=== PATIENT | male | born 1980 | race African-American/Black ===

== ENCOUNTER 2019-12-04 20:37 | Inpatient (IN) | payer OTHER ==
[~2019-12-04 20:37] MED LIST: Iopamidol-370 76% 500 ML 1 ML ONE
[2019-12-04 21:09] LABS: Hemoglobin 14.9 g/dL (14.0-18.0); Mean Corpuscular HGB CONC 32.6 g/dL (32.0-36.0); Mean Corpuscular Hemoglobin 31.1 pg (27.0-31.0); Mean Corpuscular Volume 95.5 fL (78.0-98.0); Mean Platelet Volume 8.6 fL (7.4-10.4); Platelet Count 191 thou/uL (130-400); RBC Distribution Width 12.9 % (11.5-14.5); Red Blood Cell (RBC) Count 4.78 mill/uL (4.70-6.10); White Blood Cell (WBC) Count 7.7 thou/uL (4.8-10.8)
--- NOTE | 2019-12-04 21:19 | RAD ---
CHEST ONE VIEW: 12/04/19 HISTORY: Dyspnea. Shortness of breath. FINDINGS: Cardiomegaly. Pulmonary vessels and hilum are normal. Costophrenic angles are clear. No consolidation or mass. Partial obscuration of the right hemidiaphragm likely due to parenchymal changes. No pneumo thorax or acute osseous abnormalities. IMPRESSION: 1. Cardiomegaly. 2. Right lower lobe parenchymal changes. POS: PPP
[2019-12-04 21:27] LABS: Lymphocytes 51 % (21-51); MDiff Complete? YES; Monocytes 12 % (0-10); Neutrophil 36 % (42-75); Reactive Lymphocytes 1 % (0-10)
[2019-12-04 21:42] LABS: ALT (SGPT) 335 U/L (8-55); AST (SGOT) 311 U/L (5-34); Albumin 3.5 g/dL (3.5-5.0); Alkaline Phosphatase 77 U/L (40-110); Anion Gap 17 mmol/L (10-20); BUN (Urea Nitrogen) 16 mg/dL (8.9-20.6); Bilirubin, Total 1.1 mg/dL (0.2-1.2); Calc. Creatinine Clearance 0 mL/min (70-130); Calcium 8.7 mg/dL (7.8-10.44); Carbon Dioxide 24 mmol/L (22-29); Chloride 103 mmol/L (98-107); Estimated GFR-MDRD 67; Globulin 3.5 g/dL (2.4-3.5); Glucose 93 mg/dL (70-105); Potassium 4.5 mmol/L (3.5-5.1); Sodium 139 mmol/L (136-145)
[2019-12-04 21:46] LABS: CK (CPK) 155 U/L (30-200)
[2019-12-04 21:47] LABS: Lipase 13 U/L (8-78)
[2019-12-04 22:04] LABS: CKMB 3.4 ng/mL (0-6.6)
[2019-12-04] MEDS ORDERED: Fentanyl 100 MCG/2 ML VIAL ONE (22:05)
[2019-12-04] MEDS ORDERED: Aspirin 325 MG TAB ONE (22:05)
[2019-12-04] MEDS ORDERED: Enoxaparin Sodium 100 MG/ML SYRINGE ONE (22:05)
[2019-12-04] MEDS ORDERED: Furosemide 40 MG/4 ML VIAL ONE (22:29)
--- NOTE | 2019-12-04 22:36 | CT ---
CT PULMONARY ANGIOGRAM WITH IV CONTRAST AND 3-D POSTPROCESSING: HISTORY:Shortness of breath FINDINGS: There is good contrast opacification of the pulmonary arterial vasculature without filling defects to suggest pulmonary embolism. The thoracic aorta is not opacified and is without aneurysm . There is mediastinal lymphadenopathy. No pericardial effusion is seen. There are small bilateral pleural effusions, right slightly larger t whitten the left with adjacent atelectatic changes. No pneumothoraces, lobar consolidation or lung nodules are noted. There are mild degenerative changes in the spine. There is bilateral gynecomastia. IMPRESSION: No CT evidence of pulmonary embolism.
[2019-12-04] MEDS ORDERED: Nitroglycerin 0.4 MG TAB (25 Tab Bottle) SL PRN (23:08)
--- NOTE | 2019-12-04 23:49 | PDOC.HHP ---
Hospitalist HPI - History of Present Illness Chest pain and shortness of breath History of Present Illness: 39-year-old -[place] man with a history of chronic systolic heart failure, history of coronary artery disease was transferred from correctional facility to the emergency department due to chest pain of onset 3 days ago. Patient describes intermittent chest pain, maximum intensity 6/10, worse with breathing, no known relieving factors, no associated diaphoresis or palpitation. Patient endorsed shortness of breath and orthopnea. Patient stated he is not taking his medications since incarcerated 3 days ago. He endorses nonproductive cough. His initial troponin in the ED is elevated to 3.1. EKG demonstrated diffuse complexes. His d-dimer elevated as well as BNP. CTA thorax done was negative for pulmonary embolism. It demonstrated small bilateral pleural effusions. Patient with significant CAD risk factors. He is admitted for further management of NSTEMI and CHF exacerbation. ED Course: Patient was given full dose Lovenox aspirin and IV Lasix in the ED. Hospitalist ROS - Review of Systems Other: Except as documented, all other systems reviewed and negative Hospitalist History - Past Medical History Cardiac: reports: CAD, CHF (Systolic) - Family History Family History: reports: cardiac disorder (runs in the family) - Social History Smoking Status: Former smoker Alcohol: reports: None Living Situation: Other (Incarcerated) - Exam General Appearance: NAD, awake alert Eye: PERRL, anicteric sclera ENT: normocephalic atraumatic, no oropharyngeal lesions, moist mucosa Neck: supple, no JVD, no carotid bruit Heart: RRR, no murmur, no gallops, normal peripheral pulses Respiratory: CTAB, no wheezes, no rales Gastrointestinal: soft, non-tender, non-distended, normal bowel sounds Extremities: no cyanosis, no clubbing, no edema Skin: normal turgor, no lesions Neurological: cranial nerve grossly intact Musculoskeletal: normal strength Psychiatric: normal affect, normal behavior, A&O x 3 Hospitalist Results - Labs Result Diagrams: 12/05/19 02:58 12/05/19 02:58 Lab results: WBC 7.7 thou/uL (4.8-10.8) 12/04/19 20:58 Hgb 14.9 g/dL (14.0-18.0) 12/04/19 20:58 Hct 45.6 % (42.0-52.0) 12/04/19 20:58 MCV 95.5 fL (78.0-98.0) 12/04/19 20:58 Plt Count 191 thou/uL (130-400) 12/04/19 20:58 Sodium 139 mmol/L (136-145) 12/04/19 20:58 Potassium 4.5 mmol/L (3.5-5.1) 12/04/19 20:58 Chloride 103 mmol/L (98-107) 12/04/19 20:58 Carbon Dioxide 24 mmol/L (22-29) 12/04/19 20:58 BUN 16 mg/dL (8.9-20.6) 12/04/19 20:58 Creatinine 1.41 mg/dL (0.7-1.3) H 12/04/19 20:58 Glucose 93 mg/dL (70-105) 12/04/19 20:58 Calcium 8.7 mg/dL (7.8-10.44) 12/04/19 20:58 Total Bilirubin 1.1 mg/dL (0.2-1.2) 12/04/19 20:58 AST 311 U/L (5-34) H 12/04/19 20:58 ALT 335 U/L (8-55) H 12/04/19 20:58 Alkaline Phosphatase 77 U/L (40-110) 12/04/19 20:58 Creatine Kinase 155 U/L (30-200) 12/04/19 20:58 CK-MB (CK-2) 3.4 ng/mL (0-6.6) 12/04/19 20:58 Troponin I 3.191 ng/mL (< 0.028) H* 12/04/19 20:58 B-Natriuretic Peptide 2553.8 pg/mL (0-100) H 12/04/19 20:58 Serum Total Protein 7.0 g/dL (6.0-8.3) 12/04/19 20:58 Albumin 3.5 g/dL (3.5-5.0) 12/04/19 20:58 Lipase 13 U/L (8-78) 12/04/19 20:58 - Radiology Interpretation CT scan - chest Status: report reviewed by me (Bilateral pleural effusions. No evidence of PE.) Hospitalist [employer]&P A/P - Problem (1) NSTEMI (non-ST elevated myocardial infarction) Code(s): I21.4 - NON-ST ELEVATION (NSTEMI) MYOCARDIAL INFARCTION Status: Acute (2) Chest pain Code(s): R07.9 - CHEST PAIN, UNSPECIFIED Status: Acute (3) Acute on chronic systolic heart failure Code(s): I50.23 - ACUTE ON CHRONIC SYSTOLIC (CONGESTIVE) HEART FAILURE Status: Acute - Plan Plan: Admit to the medical floor. Start full dose Lovenox. We will continue his aspirin and Plavix. We will also continue his home dose Coreg. IV Lasix 40 mg twice daily. Monitor intake and output and daily weight. Trend troponin. Check lipid profile. Check TSH. Obtain echocardiogram Cardiology consult.
[2019-12-05 00:37] LABS: Critical Call Chem Troponin I RESULT DECREASING; Troponin I 3.063 ng/mL (< 0.028)
[2019-12-05 03:37] LABS: Critical Call Chem Troponin I RESULT DECREASING; Troponin I 3.049 ng/mL (< 0.028)
[2019-12-05 03:40] LABS: Anion Gap 17 mmol/L (10-20); BUN (Urea Nitrogen) 16 mg/dL (8.9-20.6); Calc. Creatinine Clearance 114 mL/min (70-130); Calcium 8.2 mg/dL (7.8-10.44); Carbon Dioxide 21 mmol/L (22-29); Chloride 103 mmol/L (98-107); Estimated GFR-MDRD 84; Glucose 78 mg/dL (70-105); Magnesium 1.7 mg/dL (1.6-2.6); Potassium 3.9 mmol/L (3.5-5.1); Sodium 137 mmol/L (136-145)
[2019-12-05 04:10] LABS: Hemoglobin 14.9 g/dL (14.0-18.0); Lymphocytes 57 % (21-51); MDiff Complete? YES; Mean Corpuscular HGB CONC 33.3 g/dL (32.0-36.0); Mean Corpuscular Hemoglobin 31.6 pg (27.0-31.0); Mean Corpuscular Volume 94.7 fL (78.0-98.0); Mean Platelet Volume 8.7 fL (7.4-10.4); Monocytes 8 % (0-10); Neutrophil 33 % (42-75); Platelet Count 175 thou/uL (130-400); RBC Distribution Width 12.9 % (11.5-14.5); Reactive Lymphocytes 2 % (0-10); Red Blood Cell (RBC) Count 4.73 mill/uL (4.70-6.10); White Blood Cell (WBC) Count 8.1 thou/uL (4.8-10.8)
[2019-12-05] MEDS: Furosemide 40 MG/4 ML VIAL SLOW IVP SCH ×2 (07:33→14:10)
[2019-12-05] MEDS: Carvedilol 6.25 MG TAB PO SCH ×2 (08:52→16:47)
[2019-12-05] MEDS: Aspirin 81 mg Enteric Coated Tablet PO SCH (08:52)
[2019-12-05] MEDS: Spironolactone 25 MG TAB PO SCH (08:52)
[2019-12-05] MEDS: Clopidogrel Bisulfate 75 MG TAB PO SCH (08:52)
[2019-12-05] MEDS: Enoxaparin Sodium 100 MG/ML SYRINGE SC SCH ×2 (08:52→21:10)
--- NOTE | 2019-12-05 11:47 | CON ---
DATE OF CONSULTATION: 12/05/2019 INDICATION FOR CONSULTATION: A 39-year-old patient with a history of known nonischemic cardiomyopathy, who had not been taking his medicines for several days and developed worsening of congestive heart failure. He also most likely has diastolic heart failure as well as systolic heart failure. We were asked to see him after he was admitted to the hospital for congestive heart failure, also had indeterminate cardiac enzymes or possible enzymes for a [id number] elevation or most likely type-2 myocardial infarction. HISTORY OF PRESENT ILLNESS: This very unfortunate 39-year-old gentleman has a history of nonischemic cardiomyopathy. He has been on the transplant list at [facility] since [address] Das there for Cardiology. He normally lives in [place]. 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 He apparently was visiting here, was driving through here, and for whatever reason, had some interaction and was then incarcerated. He has been incarcerated for the last several days and was off his medications. Without getting his medications, he became more and more short of breath. He denied any chest pain. He then was brought to the emergency room here. Since being here, he has been given diuresis. He has improved. He said at least he can breathe now, and again continues to have no chest pain, but during the evaluation, his cardiac enzymes were found to be slightly elevated. Troponin-I was 3.19, continues to decrease down was now 3.049 at the 3rd set, and at this time, he is feeling much better. He is actually lying down flat and without any significant shortness of breath at this time and appears that he just had a CHF exacerbation due to not being able to take his medications. PAST MEDICAL HISTORY: Significant for history of apparently from the records schizophrenia, hypertension, and dilated cardiomyopathy, which is nonischemic. He has had a cardiac catheterization in the past and apparently had an atherectomy or thrombectomy performed. He said he had no coronary artery disease found and this was performed a little over a year ago apparently in [place]. He has had also previous cardiac catheterization I believe done in [place] for evaluation for his possible transplant. During the emergency room, he was given I believe Lovenox and he was given aspirin and Lovenox as well as nitroglycerin and Lasix in the emergency room. At this time, he is feeling much better. Again, past medical history is significant for no history of coronary artery disease, history of thrombus in the coronaries due to most likely left ventricular thrombus. He has history of heart failure, schizophrenia, hypertension. He has had history of illicit drug use also. MEDICATIONS: Prior to admission include Xarelto 20 mg a day, furosemide 40 mg b.i.d. He takes Aldactone 25 mg a day, Coreg 6.25 mg b.i.d., Plavix 75 mg a day, and aspirin 81 mg a day. ALLERGIES: I DID NOT BELIEVE THERE ARE ANY ALLERGIES. SOCIAL HISTORY: He smoked half a pack a day for last 10 years. He has a history of methamphetamine use and some cocaine use many years ago. He denies any alcohol use. He lives in [place]. He works as a cutting machine tender decorative. REVIEW OF SYSTEMS: A 12-point review of systems is unremarkable except what is noted in the history of present illness, mainly he just complains of shortness of breath. He denied any HEENT complaints. No pulmonary complaints. No GI. No nausea, vomiting, or diarrhea. No or prostate problems. He denied any musculoskeletal problems except for some edema. PHYSICAL EXAMINATION: GENERAL: Reveals well-developed, well-nourished gentleman, who is in no acute distress at this time. VITAL SIGNS: Blood pressure is 132/81, heart rate is 90 and regular, respiratory rate is 20. He is afebrile. HEENT: Shows head to be normocephalic and atraumatic. Carotid pulses are present. There were no bruits. CHEST: Clear to auscultation. Somewhat decreased in the bases, but no significant rales, rhonchi, or wheezing was noted. CARDIOVASCULAR: Regular rate and rhythm at this time. There were no gross murmurs noted. ABDOMEN: Soft, flat, nontender. Positive bowel sounds are present. EXTREMITIES: No clubbing or cyanosis. He has minimal ankle edema. Pedal pulses are somewhat decreased. This may be due to decreased cardiac output. SKIN: Warm and dry. LABORATORY DATA: Shows a sodium of 137, potassium 3.9, BUN was 16, creatinine 1.17, glucose was 78. Hemoglobin 14.9, WBC of 8.1, hematocrit 44.8, platelet count was 175,000. BNP was 2553. Troponin-I was 3.19 decreased down to 3.06 and again decreased to 3.049. Chest x-ray shows cardiomegaly. There is some right lower lobe atelectasis. CT scan of the chest showed bilateral small pleural effusions, but no other acute findings. EKG shows normal sinus rhythm with no acute changes. He does have some nonspecific ST-segment changes in the lateral leads. IMPRESSION: 1. Congestive heart failure exacerbation in 39-year-old patient with a history of known dilated nonischemic cardiomyopathy. He will need to be resumed on his medications. Most likely, this event occurred due to the patient not being able to have his medications for the last 3 to 4 days. He will be referred back to [facility] with Dr. Das for further evaluation for possible transplant. I did explain to him that should he continue to use illicit drugs, he would not be a candidate to undergo a cardiac transplant in the future. 2. History of thrombus to coronary arteries apparently, but no evidence of stenosis according to the patient, this was on the cardiac catheterization less than 2 years ago. He does have nonischemic cardiomyopathy. 3. History of illicit drug use. I strongly encouraged the patient to stop using illicit drugs. We will obtain an echocardiogram for further evaluation of the left ventricular systolic function and also to rule out thrombus. Mainly now, we just need to get his congestive heart failure symptoms under control. Further care of the patient will depend on the results of the echocardiogram. Job ID: [id number]
--- NOTE | 2019-12-05 12:32 | PDOC.HOSPP ---
- Subjective Encounter Date: 12/05/19 Encounter Time: 10:30 Subjective: sob is better, no chest pain or palp says he lives in [facility] area in [place], has been in [place] long-term x 4 days is confident he will have his [place] by tomorrow to [facility] - Objective Vital Signs & Weight: Vital Signs (12 hours) Temp Pulse Resp BP Pulse Ox 12/05/19 08:00 97.6 F 91 17 115/77 99 12/05/19 05:19 97.9 F 90 20 132/81 100 12/05/19 00:43 98.3 F 88 18 120/79 98 Weight Weight 210 lb 9.6 oz I&O: 12/04/19 12/05/19 12/06/19 06:59 06:59 06:59 Output Total 800 Balance -800 Result Diagrams: 12/05/19 02:58 12/05/19 02:58 Hospitalist ROS - Medication Medications: Active Medications Generic Name Dose Route Start Last Admin Trade Name Freq PRN Reason Stop Dose Admin Aspirin 81 mg 12/05/19 09:00 12/05/19 08:52 Aspirin 81 Mg Enteric Coated Tablet PO 81 mg DAILY SABAS Administration Carvedilol 6.25 mg 12/05/19 08:00 12/05/19 08:52 Carvedilol 6.25 Mg Tab PO 6.25 mg BID- SABAS Administration Clopidogrel Bisulfate 75 mg 12/05/19 09:00 12/05/19 08:52 Clopidogrel Bisulfate 75 Mg Tab PO 75 mg DAILY SABAS Administration Enoxaparin Sodium 100 mg 12/05/19 09:00 12/05/19 08:52 Enoxaparin Sodium 100 Mg/Ml Syringe SC 100 mg 0900,2100 SABAS Administration Furosemide 40 mg 12/05/19 06:00 12/05/19 07:33 Furosemide 40 Mg/4 Ml Vial SLOW IVP 40 mg 0600,1400 SABAS Administration Sodium Chloride 10 ml 12/05/19 09:00 12/05/19 08:52 Flush - Normal Saline 10 Ml Syringe IVF 10 ml Q12HR SABAS Administration Spironolactone 25 mg 12/05/19 09:00 12/05/19 08:52 Spironolactone 25 Mg Tab PO 25 mg DAILY SABAS Administration - Exam General Appearance: awake alert Eye: PERRL, anicteric sclera ENT: no oropharyngeal lesions, moist mucosa Neck: supple, no JVD Heart: RRR, no murmur Respiratory: no wheezes, rales Gastrointestinal: soft, non-tender, non-distended, normal bowel sounds Extremities: no cyanosis, no edema Neurological: cranial nerve grossly intact, no focal deficits Psychiatric: normal affect, A&O x 3 Hosp A/P (1) Acute on chronic systolic heart failure Code(s): I50.23 - ACUTE ON CHRONIC SYSTOLIC (CONGESTIVE) HEART FAILURE Status: Acute (2) NSTEMI (non-ST elevated myocardial infarction) Code(s): I21.4 - NON-ST ELEVATION (NSTEMI) MYOCARDIAL INFARCTION Status: Acute (3) Non-ischemic cardiomyopathy Code(s): I42.8 - OTHER CARDIOMYOPATHIES Status: Chronic (4) Substance abuse Code(s): F19.10 - OTHER PSYCHOACTIVE SUBSTANCE ABUSE, UNCOMPLICATED Status: Chronic (5) Tobacco abuse Code(s): Z72.0 - TOBACCO USE Status: Chronic - Plan await echo has had 2 prior cath done in [place], on one of them he had thrombectomy done he knows his heart is weak but doesn't recall ef continue lasix, asp, coreg, full dose lovenox, aldactone switch to xarelto in am if there is no LV thrombus on echo, d/w has type 2 nstemi demand ischemia due to chf exacerbation to ambulate as tolerated hemostable has already put out total of 5 urinal cans of urine from admission
[2019-12-05 13:17] LABS: SARS-CoV-2 MS2 Positive; SARS-CoV-2 N Gene Negative; SARS-CoV-2 S Gene Negative; SARS-CoV-2 by NAA Not Detected (NotDetected); SARS-CoV-2 orf1ab Negative
[2019-12-05 13:55] VITALS: BMI 30.2
[2019-12-06 05:27] LABS: Anion Gap 12 mmol/L (10-20); BUN (Urea Nitrogen) 17 mg/dL (8.9-20.6); Calc. Creatinine Clearance 111 mL/min (70-130); Calcium 7.6 mg/dL (7.8-10.44); Carbon Dioxide 27 mmol/L (22-29); Chloride 102 mmol/L (98-107); Estimated GFR-MDRD 82; Glucose 96 mg/dL (70-105); Potassium 3.3 mmol/L (3.5-5.1); Sodium 138 mmol/L (136-145)
[2019-12-06] MEDS: Furosemide 40 MG/4 ML VIAL SLOW IVP SCH ×2 (05:30→16:21)
[2019-12-06] MEDS: Clopidogrel Bisulfate 75 MG TAB PO SCH (11:07)
[2019-12-06] MEDS: Carvedilol 6.25 MG TAB PO SCH ×2 (11:07→18:38)
[2019-12-06] MEDS: Spironolactone 25 MG TAB PO SCH (11:07)
[2019-12-06] MEDS: Aspirin 81 mg Enteric Coated Tablet PO SCH (11:07)
[2019-12-06] MEDS: Enoxaparin Sodium 100 MG/ML SYRINGE SC SCH (11:08)
--- NOTE | 2019-12-06 16:13 | PDOC.HOSPP ---
- Subjective Encounter Date: 12/06/19 Encounter Time: 10:00 Subjective: Patient seen for follow-up regarding congestive heart failure exacerbation. Reports feeling better today. - Objective Vital Signs & Weight: Vital Signs (12 hours) Temp Pulse Resp BP Pulse Ox 12/06/19 11:00 97 12/06/19 07:25 98.6 F 62 16 111/79 97 12/06/19 05:00 99/64 Weight Admit Weight 210 lb 9.6 oz Weight 199 lb I&O: 12/05/19 12/06/19 12/07/19 06:59 06:59 06:59 Intake Total 1920 Output Total 4000 Balance -2079 Result Diagrams: 12/05/19 02:58 12/06/19 04:09 Additional Labs: I reviewed patient's labs and MAR EKG Reviewed by me: Yes (Telemetry: Normal sinus rhythm) Hospitalist ROS - Review of Systems Respiratory: reports: SOB with excertion. denies: cough, shortness of breath, hemoptysis, pleuritic pain, sputum Cardiovascular: reports: orthopnea, edema. denies: chest pain, palpitations, paroxysmal noc. dyspnea, light headedness - Medication Medications: Active Medications Generic Name Dose Route Start Last Admin Trade Name Freq PRN Reason Stop Dose Admin Aspirin 81 mg 12/05/19 09:00 12/06/19 11:07 Aspirin 81 Mg Enteric Coated Tablet PO 81 mg DAILY SABAS Administration Carvedilol 6.25 mg 12/05/19 08:00 12/06/19 11:07 Carvedilol 6.25 Mg Tab PO 6.25 mg BID- SABAS Administration Clopidogrel Bisulfate 75 mg 12/05/19 09:00 12/06/19 11:07 Clopidogrel Bisulfate 75 Mg Tab PO 75 mg DAILY SABAS Administration Enoxaparin Sodium 100 mg 12/05/19 09:00 12/06/19 11:08 Enoxaparin Sodium 100 Mg/Ml Syringe SC 100 mg 0900,2100 SABAS Administration Furosemide 40 mg 12/05/19 06:00 12/06/19 05:30 Furosemide 40 Mg/4 Ml Vial SLOW IVP Not Given 0600,1400 SABAS Sodium Chloride 10 ml 12/05/19 09:00 12/06/19 11:09 Flush - Normal Saline 10 Ml Syringe IVF 10 ml Q12HR SABAS Administration Spironolactone 25 mg 12/05/19 09:00 12/06/19 11:07 Spironolactone 25 Mg Tab PO 25 mg DAILY SABAS Administration - Exam General Appearance: awake alert Eye: anicteric sclera ENT: moist mucosa Neck: supple Heart: RRR Respiratory - other findings: Bibasilar crackles Gastrointestinal: soft, non-tender Extremities: no cyanosis Musculoskeletal: no muscle wasting Psychiatric: normal affect, normal behavior Hosp A/P - Plan -Assessment (1) Acute on chronic systolic heart failure NYHA class III ACUTE ON CHRONIC SYSTOLIC (CONGESTIVE) HEART FAILURE Status: Acute (2) NSTEMI (non-ST elevated myocardial infarction) type II NON-ST ELEVATION (NSTEMI) MYOCARDIAL INFARCTION Status: Acute (3) Substance abuse Code(s): F19.10 - OTHER PSYCHOACTIVE SUBSTANCE ABUSE, UNCOMPLICATED Status: Chronic (4) Tobacco abuse Code(s): Z72.0 - TOBACCO USE Status: Chronic (5) Non-ischemic cardiomyopathy Code(s): I42.8 - OTHER CARDIOMYOPATHIES Status: Chronic - Plan Echo report noted. continue lasix, asp, coreg, full dose lovenox, aldactone has type 2 nstemi demand ischemia due to chf exacerbation Ambulate patient
[2019-12-06] MEDS: Rivaroxaban 2.5 MG TAB PO SCH (20:34)
--- NOTE | 2019-12-07 02:17 | PDOC.EVN ---
Event Note - Event Note Event Note: Nursing called, reports Non sustained Vtach, asymptomatic, VSS. Will check electrolytes, add electrolyte replacement protocol.
[2019-12-07] MEDS ORDERED: Electrolyte Replacement Protocol FS PRN (02:30)
[2019-12-07 03:00] LABS: Anion Gap 14 mmol/L (10-20); BUN (Urea Nitrogen) 15 mg/dL (8.9-20.6); Calc. Creatinine Clearance 106 mL/min (70-130); Calcium 8.2 mg/dL (7.8-10.44); Carbon Dioxide 25 mmol/L (22-29); Chloride 101 mmol/L (98-107); Estimated GFR-MDRD 83; Glucose 113 mg/dL (70-105); Potassium 3.7 mmol/L (3.5-5.1); Sodium 136 mmol/L (136-145)
[2019-12-07] MEDS ORDERED: Magnesium 2 GM/50 ML 2 GM in Premix Bag 1 BAG IVPB SCH (03:30)
[2019-12-07] MEDS: Furosemide 40 MG/4 ML VIAL SLOW IVP SCH ×2 (05:02→14:25)
[2019-12-07] MEDS: Aspirin 81 mg Enteric Coated Tablet PO SCH (08:52)
[2019-12-07] MEDS: Rivaroxaban 2.5 MG TAB PO SCH ×2 (08:52→20:21)
[2019-12-07] MEDS: Carvedilol 6.25 MG TAB PO SCH ×2 (08:52→17:22)
[2019-12-07] MEDS: Clopidogrel Bisulfate 75 MG TAB PO SCH (08:52)
[2019-12-07] MEDS: Spironolactone 25 MG TAB PO SCH (10:18)
[2019-12-07] MEDS ORDERED: Lisinopril 2.5 MG TAB PO SCH (14:15)
--- NOTE | 2019-12-07 14:19 | PDOC.HOSPP ---
- Subjective Encounter Date: 12/07/19 Encounter Time: 11:00 Subjective: Patient seen for follow-up regarding nonsustained ventricular tachycardia. Denies any chest pain. - Objective Vital Signs & Weight: Vital Signs (12 hours) Temp Pulse Resp BP Pulse Ox 12/07/19 11:34 97.5 F L 78 18 111/74 99 12/07/19 07:40 100 12/07/19 07:39 97.7 F 80 18 116/78 100 12/07/19 03:45 98.3 F 81 18 117/74 96 Weight Admit Weight 210 lb 9.6 oz Weight 202 lb 8 oz I&O: 12/06/19 12/07/19 12/08/19 06:59 06:59 06:59 Intake Total 1920 1922 Output Total 4000 2640 Balance -7958 -515 Result Diagrams: 12/05/19 02:58 12/07/19 02:26 Additional Labs: I reviewed patient's labs and MAR EKG Reviewed by me: Yes (Telemetry: Normal sinus rhythm) Hospitalist ROS - Review of Systems Respiratory: denies: cough, shortness of breath, SOB with excertion, pleuritic pain, wheezing Cardiovascular: denies: chest pain, palpitations, orthopnea, paroxysmal noc. dyspnea, edema, light headedness - Medication Medications: Active Medications Generic Name Dose Route Start Last Admin Trade Name Freq PRN Reason Stop Dose Admin Aspirin 81 mg 12/05/19 09:00 12/07/19 08:52 Aspirin 81 Mg Enteric Coated Tablet PO 81 mg DAILY SABAS Administration Carvedilol 6.25 mg 12/05/19 08:00 12/07/19 08:52 Carvedilol 6.25 Mg Tab PO 6.25 mg BID- SABAS Administration Clopidogrel Bisulfate 75 mg 12/05/19 09:00 12/07/19 08:52 Clopidogrel Bisulfate 75 Mg Tab PO 75 mg DAILY SABAS Administration Furosemide 40 mg 12/05/19 06:00 12/07/19 05:02 Furosemide 40 Mg/4 Ml Vial SLOW IVP 40 mg 0600,1400 SABAS Administration Rivaroxaban 2.5 mg 12/06/19 21:00 12/07/19 08:52 Rivaroxaban 2.5 Mg Tab PO 2.5 mg BID SABAS Administration Sodium Chloride 10 ml 12/05/19 09:00 12/07/19 08:53 Flush - Normal Saline 10 Ml Syringe IVF 10 ml Q12HR SABAS Administration Spironolactone 25 mg 12/05/19 09:00 12/07/19 10:18 Spironolactone 25 Mg Tab PO 25 mg DAILY SABAS Administration - Exam General Appearance: awake alert Eye: anicteric sclera ENT: moist mucosa Neck: supple Heart: RRR Respiratory: CTAB Gastrointestinal: soft, non-tender Extremities: no cyanosis Skin: no rashes Psychiatric: normal affect, normal behavior Hosp A/P - Plan -Assessment (1) unsustained ventricular tachycardia Status: Acute (2) Acute on chronic systolic heart failure NYHA class III ACUTE ON CHRONIC SYSTOLIC (CONGESTIVE) HEART FAILURE Status: Acute (3) NSTEMI (non-ST elevated myocardial infarction) type II NON-ST ELEVATION (NSTEMI) MYOCARDIAL INFARCTION Status: Acute (4) Substance abuse Code(s): F19.10 - OTHER PSYCHOACTIVE SUBSTANCE ABUSE, UNCOMPLICATED Status: Chronic (5) Tobacco abuse Code(s): Z72.0 - TOBACCO USE Status: Chronic (6) Non-ischemic cardiomyopathy Code(s): I42.8 - OTHER CARDIOMYOPATHIES Status: Chronic - Plan Start patient on lisinopril. Magnesium and potassium levels are normal today morning. Continue diuresis. Patient has been started on rivaroxaban.
--- NOTE | 2019-12-07 19:43 | PQF ---
CLINICAL DOCUMENTATION CLARIFICATION FORM: Dear Dr. Sofia Summers 2019. [id number] Please check appropriate box(es): [ ] Acute Respiratory Failure: [ ] with Hypoxia [ ] with Hypercapnia [ ] Acute Respiratory Failure due to: (etiology) [ ] Hypoxia [ ] Other diagnosis [ ] Unable to determine In addition, please specify: Present on Admission (POA): [ ] Yes [ ] No [ ] Unable to determine Clinical indicators/Signs/Symptoms/Labs: 12/03 ED report: resp 23, pulse 103, 91% RA > 99% 2L/NC, Pt reports 3 days of SOB with chest pain, Final ed physician dx: NSTEMI, CHF 12/03 HPI : Pt endorses SOB and orthopnea, states he has not taken his medication for 3 days since his incarceration. A/P: NSTEMI, Chest pain, Acute on Chronic Systolic CHF 12/06 event note: nursing called, reports non-sustained v-tach, asymptomatic (Krist[place]) RIsk: *NSTEMI, * Acute on Chronic Systolic CHF (H&P/[place]) 12/03 Treatments: * supplemental Oxygen (12/03 - present) * Lasix IVP ( 12/04 - present) Thank you! CDS/[employer] Signature: Michelle Bhandari RN Phone #: [phone] Date/Time: 12/07/2019 Acute Respiratory Failure: ABG pH < 7.35 or > 7.45; Decreased oxygen saturation (<90% room air or < 95% on oxygen); PCO2 > 50 mm Hg; PO2 < 60 mm Hg; Labored or rapid respirations ARDS: Dx Criteria [[place] ARDS]: Respiratory symptoms within one week of a known clinical insult (e.g. shock, infection, surgery, trauma) Bilateral opacities in CXR/Chest CT not due to CHF or fluid This is a permanent part of the Medical Record MTDD
[2019-12-08 05:17] LABS: Anion Gap 13 mmol/L (10-20); BUN (Urea Nitrogen) 18 mg/dL (8.9-20.6); Calc. Creatinine Clearance 96 mL/min (70-130); Calcium 8.7 mg/dL (7.8-10.44); Carbon Dioxide 28 mmol/L (22-29); Chloride 101 mmol/L (98-107); Estimated GFR-MDRD 72; Glucose 73 mg/dL (70-105); Potassium 4.4 mmol/L (3.5-5.1); Sodium 138 mmol/L (136-145)
[2019-12-08] MEDS: Furosemide 40 MG/4 ML VIAL SLOW IVP SCH ×2 (05:19→15:53)
[2019-12-08] MEDS: Aspirin 81 mg Enteric Coated Tablet PO SCH (08:54)
[2019-12-08] MEDS: Carvedilol 6.25 MG TAB PO SCH (08:54)
[2019-12-08] MEDS: Rivaroxaban 2.5 MG TAB PO SCH (08:54)
[2019-12-08] MEDS: Spironolactone 25 MG TAB PO SCH (08:54)
--- NOTE | 2019-12-08 11:28 | PDOC.CPN ---
- Subjective Date: 12/08/19 Time: 11:26 Interval history: No overnight complaints. Patient to be discharged today. Frequent PVCs and NSVT on monitor. Apparently Amio was to be started yesterday and not done. - Review of Systems General: denies: fever/chills, weight/appetite/sleep changes, night sweats, fatigue Respiratory: denies: cough, congestion, shortness of breath, exercise intolerance Cardiovascular: denies: chest pain, palpitation, edema, paroxysmal nocturnal dyspnea, orthopnea Gastrointestinal: denies: nausea, vomiting, diarrhea, constipation, abd pain, GI bleeding Musculoskeletal: denies: pain, tenderness, stiffness, swelling, arthritis/art hralgias Neurological: reports: weakness - Objective Allergies/Adverse Reactions: Allergies Allergy/AdvReac Type Severity Reaction Status Date / Time No Known Drug Allergies Allergy Verified 12/06/19 20:30 Visit Medications: Current Medications Amiodarone HCl (Amiodarone 200 Mg Tab) 400 mg PO TID [facility] Amiodarone HCl (Amiodarone 200 Mg Tab) 400 mg PO NOW [facility] Aspirin (Aspirin 81 Mg Enteric Coated Tablet) 81 mg PO DAILY [facility] Last Admin: 12/08/19 08:54 Dose: 81 mg Documented by: Carvedilol (Carvedilol 6.25 Mg Tab) 6.25 mg PO BID-WM [facility] Last Admin: 12/08/19 08:54 Dose: 6.25 mg Documented by: Furosemide (Furosemide 40 Mg/4 Ml Vial) 40 mg SLOW IVP 0600,1400 [facility] Last Admin: 12/08/19 05:19 Dose: 40 mg Documented by: Miscellaneous Medication (Electrolyte Replacement Protocol) 0 each FS ASDIR PRN; Protocol PRN Reason: ELECTROLYTE REPLACEMENT Nitroglycerin (Nitroglycerin 0.4 Mg Tab (25 Tab Bottle)) 0.4 mg SL Q5MIN PRN PRN Reason: Chest Pain Rivaroxaban (Rivaroxaban 2.5 Mg Tab) 2.5 mg PO BID [facility] Last Admin: 12/08/19 08:54 Dose: 2.5 mg Documented by: Sodium Chloride (Flush - Normal Saline 10 Ml Syringe) 10 ml IVF Q12HR [facility] Last Admin: 12/08/19 08:55 Dose: 10 ml Documented by: Spironolactone (Spironolactone 25 Mg Tab) 25 mg PO DAILY [facility] Last Admin: 12/08/19 08:54 Dose: 25 mg Documented by: Vital Signs & Weight: Vital Signs Temp Pulse Resp BP Pulse Ox 12/08/19 07:07 97.5 F L 81 16 114/80 97 12/08/19 07:05 99 12/08/19 03:20 98.5 F 75 16 105/64 95 Admit Weight 210 lb 9.6 oz Weight 202 lb 9.6 oz - Physical Exam General: alert & oriented x3, appears well HEENT: mucus membranes moist Neck: supple neck Cardiac: regular rate and rhythm, other (frequent ectopy) Lungs: clear to auscultation Abdomen: soft, non-tender Extremities: clubbing Skin: clear - Labs Result Diagrams: 12/05/19 02:58 12/08/19 04:10 Troponin/CKMB CK-MB (CK-2) 3.4 ng/mL (0-6.6) 12/04/19 20:58 Troponin I 3.049 ng/mL (< 0.028) H* 12/05/19 02:58 - Assessment/Plan Assessment/Plan: 1.NICMO 2.Illicit Drug Use 3. Chronic systolic CHF 4. NSVT 5.Frequent PVCs Patient euvolemic. Scheduled for LifeVest and discharge today. Will start Amio taper as previously ordered by Dr. Rice.
[2019-12-08] MEDS ORDERED: Amiodarone 200 MG TAB PO SCH ×2 (11:30→15:00)
--- NOTE | 2019-12-08 11:50 | PDOC.HOSPP ---
- Subjective Encounter Date: 12/08/19 Encounter Time: 07:00 Subjective: Patient seen for follow-up regarding heart failure exacerbation. Reports feeling better. - Objective Vital Signs & Weight: Vital Signs (12 hours) Temp Pulse Resp BP Pulse Ox 12/08/19 07:07 97.5 F L 81 16 114/80 97 12/08/19 07:05 99 12/08/19 03:20 98.5 F 75 16 105/64 95 Weight Admit Weight 210 lb 9.6 oz Weight 202 lb 9.6 oz I&O: 12/07/19 12/08/19 12/09/19 06:59 06:59 06:59 Intake Total 1922 960 Output Total 2640 8136 600 Balance -715 -1690 -600 Result Diagrams: 12/05/19 02:58 12/08/19 04:10 Additional Labs: I reviewed patient's labs and MAR EKG Reviewed by me: Yes (Telemetry: Normal sinus rhythm, premature ventricular complexes, NSVT) Hospitalist ROS - Review of Systems Cardiovascular: denies: chest pain, palpitations, orthopnea, paroxysmal noc. dyspnea, edema, light headedness Gastrointestinal: denies: nausea, vomiting, abdominal pain, diarrhea, constipation, melena, hematochezia - Medication Medications: Active Medications Generic Name Dose Route Start Last Admin Trade Name Catrachitoq PRN Reason Stop Dose Admin Aspirin 81 mg 12/05/19 09:00 12/08/19 08:54 Aspirin 81 Mg Enteric Coated Tablet PO 81 mg DAILY [facility] Administration Carvedilol 6.25 mg 12/05/19 08:00 12/08/19 08:54 Carvedilol 6.25 Mg Tab PO 6.25 mg BID-WM [facility] Administration Furosemide 40 mg 12/05/19 06:00 12/08/19 05:19 Furosemide 40 Mg/4 Ml Vial SLOW IVP 40 mg 0600,1400 [facility] Administration Rivaroxaban 2.5 mg 12/06/19 21:00 12/08/19 08:54 Rivaroxaban 2.5 Mg Tab PO 2.5 mg BID [facility] Administration Sodium Chloride 10 ml 12/05/19 09:00 12/08/19 08:55 Flush - Normal Saline 10 Ml Syringe IVF 10 ml Q12HR [facility] Administration Spironolactone 25 mg 12/05/19 09:00 12/08/19 08:54 Spironolactone 25 Mg Tab PO 25 mg DAILY [facility] Administration - Exam General Appearance: awake alert Eye: anicteric sclera ENT: moist mucosa Neck: supple Heart: RRR Respiratory: CTAB Gastrointestinal: soft, non-tender Skin: no rashes Psychiatric: normal affect, normal behavior Hosp A/P - Plan -Assessment (1) Acute on chronic systolic heart failure NYHA class III ACUTE ON CHRONIC SYSTOLIC (CONGESTIVE) HEART FAILURE Status: Acute (2) unsustained ventricular tachycardia Status: Acute (3) NSTEMI (non-ST elevated myocardial infarction) type II NON-ST ELEVATION (NSTEMI) MYOCARDIAL INFARCTION Status: Acute (4) Substance abuse Code(s): F19.10 - OTHER PSYCHOACTIVE SUBSTANCE ABUSE, UNCOMPLICATED Status: Chronic (5) Tobacco abuse Code(s): Z72.0 - TOBACCO USE Status: Chronic (6) Non-ischemic cardiomyopathy Code(s): I42.8 - OTHER CARDIOMYOPATHIES Status: Chronic (7) acute respiratory failure secondary to congestive heart failure exacerbation Status: Acute, present on admission - Plan Patient is currently awaiting LifeVest. Continue amiodarone and lisinopril. Discontinue Plavix. Discharge once LifeVest is fitted.
[2019-12-08 16:05] VITALS: BP 124/82; TEMP 97.8
--- NOTE | 2019-12-08 20:03 | DIS ---
DATE OF ADMISSION: 12/04/2019 DATE OF DISCHARGE: 12/08/2019 PRIMARY CARE PROVIDER: Unknown. DISCHARGE DIAGNOSES: 1. Nonischemic cardiomyopathy. 2. Nonsustained ventricular tachycardia. 3. Acute on chronic systolic congestive heart failure, [place] Heart Association class III. 4. COVID PCR test negative. 5. Hypokalemia. 6. Bet-VK-qzdhgoiza myocardial infarction, type 2. 7. Acute hypoxic respiratory failure secondary to congestive heart failure exacerbation, present on admission. CONDITION OF PATIENT ON THE DAY OF DISCHARGE: Stable. I assessed Mr. Sparks on the day of discharge. Please refer to my daily hospitalist progress note for further details regarding this [id number]-sz-[id number] encounter. CONSULTATIONS DURING THIS HOSPITALIZATION: Cardiology, Dr. Rice. HOSPITAL COURSE: Mr. Sparks is a pleasant 39-year-old gentleman who was admitted to [facility] on December 04, 2019, for systolic congestive heart failure exacerbation and elevated troponin. He was treated with intravenous diuresis. He was seen by Cardiology Service. 2D echocardiogram showed moderately increased left ventricular size, left ventricular ejection fraction of 20% to 25%, global hypokinesis consistent with cardiomyopathy, mildly enlarged right ventricular cavity, mild hypokinesis, moderately dilated left atrium, [id number] enlarged right atrium size, moderate mitral regurgitation, structurally normal aortic valve, mild tricuspid regurgitation, and vxyd-dh-oguyyaic pulmonic regurgitation. He improved with diuretics. He was found to have nonsustained ventricular tachycardia. He was started on amiodarone. He was also started on lisinopril. His beta clarence was continued. He was recommended LifeVest. He is being fitted with LifeVest prior to discharge. If the ejection fraction does not improve, then he will need an AICD. DISCHARGE MEDICATIONS: 1. Amiodarone 400 mg 3 times a day for 1 week, then 200 mg 3 times a day for 1 week, then 200 mg 2 times a day. 2. Lisinopril 2.5 mg daily. 3. Aspirin 81 mg daily. 4. Plavix was discontinued. 5. Rivaroxaban 2.5 mg 2 times a day. 6. Trazodone 50 mg at bedtime. 7. Lasix 40 mg 2 times a day. 8. Coreg 6.25 mg 2 times a day. 9. Spironolactone 25 mg daily. 10. Abilify 10 mg daily. ACTIVITY: As tolerated. DIET: Heart-healthy and low-sodium. POST ACUTE CARE FOLLOWUP: With primary care provider in 3 days and with Cardiology Service in 2 weeks. DISCHARGE DESTINATION: [place] [facility] [employer]. TIME SPENT: Total amount of time spent coordinating this discharge: Thirty-two minutes. Job ID: [id number]
--- NOTE | 2019-12-12 16:55 | EKG ---
Test Reason : Blood Pressure : / mmHG Vent. Rate : 107 BPM Atrial Rate : 107 BPM P-R Int : 164 ms QRS Dur : 078 ms QT Int : 368 ms P-R-T Axes : 066 067 060 degrees QTc Int : 491 ms Sinus tachycardia with Fusion complexes Possible Left atrial enlargement Low voltage QRS Nonspecific T wave abnormality Abnormal ECG Confirmed by DALIA COLON, ROMINA ([id number]), online editor JULIETH ROBLERO ([id number]) on 12/12/2019 4:53:49 PM Referred By: Confirmed By:ROMINA GÓMEZ MD
== END 2019-12-08 18:15 | disposition home or self-care (01) | DRG 280 ==
LOC: EEVIPCON 20:37 → ERS 20:37 → 2NO 23:00
PROVIDERS: ADMIT Internal Medicine; ATTEND Internal Medicine
DX: I11.0 Hypertensive heart disease with heart failure (principal); I21.A1 Myocardial infarction type 2; J96.01 Acute respiratory failure with hypoxia; I47.1 Supraventricular tachycardia; I50.23 Acute on chronic systolic (congestive) heart failure; I42.0 Dilated cardiomyopathy; I25.10 Atherosclerotic heart disease of native coronary artery without angina pectoris; Z20.828 Contact with and (suspected) exposure to other viral communicable diseases; F19.10 Other psychoactive substance abuse, uncomplicated; F20.9 Schizophrenia, unspecified; I25.2 Old myocardial infarction; Z87.891 Personal history of nicotine dependence; E87.6 Hypokalemia
CPT/HCPCS: 36415; 71045; 71275; 80048; 80053; 82550; 82553; 83690; 83735; 83880; 84443; 84484; 85025; 85379; 87635; 93005; 93306; 94760; 96372; 96374; 96375; J1650; J1940; J3010; J3475; Q9967; U0003

== ENCOUNTER 2019-12-10 10:11 | Emergency (ER) | payer OTHER ==
--- NOTE | 2019-12-10 10:39 | RAD ---
Chest one view HISTORY: Chest pain. Dyspnea. COMPARISON: 12/04/2019. FINDINGS: Cardiac silhouette is magnified and enlarged. Pulmonary vasculature are unremarkable. Mediastinum is midline. No lobar consolidation or evidence of pneumothorax. Old healed bilateral upper rib fractures. IMPRESSION : Cardiomegaly. Stable radiographic appearance of the chest.
[2019-12-10 10:45] LABS: #Basophils 0.1 thou/uL (0.0-0.2); #Eosinphils 0.1 thou/uL (0.0-0.7); #Lymphocytes 2.8 thou/uL (1.20-3.40); #Monocytes 0.4 thou/uL (0.11-0.59); #Neutrophils 2.2 thou/uL (1.40-6.50); %Basophils 1.9 % (0.0-1.0); %Eosinophils 1.2 % (0.0-10.0); %Lymphocytes 49.2 % (21.0-51.0); %Monocytes 7.6 % (0.0-10.0); %Neutrophils 40.1 % (42.0-75.0); Hemoglobin 15.4 g/dL (14.0-18.0); Mean Corpuscular HGB CONC 32.1 g/dL (32.0-36.0); Mean Corpuscular Hemoglobin 30.7 pg (27.0-31.0); Mean Corpuscular Volume 95.7 fL (78.0-98.0); Mean Platelet Volume 8.7 fL (7.4-10.4); Platelet Count 264 thou/uL (130-400); RBC Distribution Width 12.8 % (11.5-14.5); Red Blood Cell (RBC) Count 5.01 mill/uL (4.70-6.10); White Blood Cell (WBC) Count 5.6 thou/uL (4.8-10.8)
[2019-12-10 11:18] LABS: ALT (SGPT) 130 U/L (8-55); AST (SGOT) 45 U/L (5-34); Albumin 3.4 g/dL (3.5-5.0); Alkaline Phosphatase 83 U/L (40-110); Anion Gap 15 mmol/L (10-20); BUN (Urea Nitrogen) 22 mg/dL (8.9-20.6); Bilirubin, Total 0.6 mg/dL (0.2-1.2); CK (CPK) 63 U/L (30-200); Calc. Creatinine Clearance 0 mL/min (70-130); Calcium 8.8 mg/dL (7.8-10.44); Carbon Dioxide 27 mmol/L (22-29); Chloride 100 mmol/L (98-107); Estimated GFR-MDRD 56; Globulin 3.4 g/dL (2.4-3.5); Glucose 133 mg/dL (70-105); Lipase 28 U/L (8-78); Potassium 4.5 mmol/L (3.5-5.1); Protein, Total 6.8 g/dL (6.0-8.3); Sodium 137 mmol/L (136-145)
[2019-12-10 11:38] LABS: CKMB 2.1 ng/mL (0-6.6)
--- NOTE | 2019-12-10 13:14 | ULT ---
EXAM: Bilateral lower extremity venous Doppler HISTORY: Left leg pain. FINDINGS: Grayscale, color-flow, Doppler evaluation, spectral analysis of the bilateral lower extremity venous structures is performed with 2-D imaging. The bilateral common femoral, superficial femoral, popliteal, posterior tibial, proximal greater saphenous and profunda femoral veins are imaged. There is normal luminal compressibility, flow, and augmentation in the visualized deep venous structu res of the bilateral lower extremities. There is increased pulsatility seen involving the waveforms of the bilateral common femoral veins which is nonspecific. This can be seen with right heart failure . IMPRESSION: No evidence of a deep vein thrombosis in the visualized deep venous structures bilateral lower extrem ities.
[2019-12-10 14:08] LABS: Troponin I 1.648 ng/mL (< 0.028)
--- NOTE | 2019-12-22 10:54 | EKG ---
Test Reason : Blood Pressure : / mmHG Vent. Rate : 071 BPM Atrial Rate : 071 BPM P-R Int : 188 ms QRS Dur : 104 ms QT Int : 426 ms P-R-T Axes : 063 043 096 degrees QTc Int : 462 ms Normal sinus rhythm Possible Left atrial enlargement Low voltage QRS Nonspecific T wave abnormality Abnormal ECG Similar to 12/04/2019 Confirmed by DEEPALI WALLIS DO ([id number]), online content editor ERIS KRISHNA ([id number]) on 12/22/2019 10:53:56 AM Referred By: Confirmed By:DEEPALI WALLIS DO
== END 2019-12-10 14:54 ==
LOC: ERS 10:11
DX: R06.00 Dyspnea, unspecified (principal); I11.0 Hypertensive heart disease with heart failure; I50.9 Heart failure, unspecified; I42.9 Cardiomyopathy, unspecified; I25.2 Old myocardial infarction; F20.9 Schizophrenia, unspecified; F17.290 Nicotine dependence, other tobacco product, uncomplicated; Z79.82 Long term (current) use of aspirin; Z79.899 Other long term (current) drug therapy
CPT/HCPCS: 36415; 71045; 80053; 82550; 82553; 83690; 83880; 84484; 85025; 93005; 93970

== ENCOUNTER 2019-12-13 12:34 | Emergency (ER) | payer OTHER ==
[2019-12-13 13:27] LABS: #Basophils 0.1 thou/uL (0.0-0.2); #Eosinphils 0.1 thou/uL (0.0-0.7); #Lymphocytes 2.9 thou/uL (1.20-3.40); #Monocytes 0.5 thou/uL (0.11-0.59); #Neutrophils 2.4 thou/uL (1.40-6.50); %Basophils 1.7 % (0.0-1.0); %Eosinophils 2.1 % (0.0-10.0); %Monocytes 8.4 % (0.0-10.0); %Neutrophils 39.7 % (42.0-75.0); Hemoglobin 14.7 g/dL (14.0-18.0); Mean Corpuscular Hemoglobin 31.6 pg (27.0-31.0); Mean Corpuscular Volume 95.8 fL (78.0-98.0); Mean Platelet Volume 8.1 fL (7.4-10.4); Platelet Count 300 thou/uL (130-400); RBC Distribution Width 12.8 % (11.5-14.5); Red Blood Cell (RBC) Count 4.65 mill/uL (4.70-6.10); White Blood Cell (WBC) Count 6.1 thou/uL (4.8-10.8)
[2019-12-13 13:43] LABS: ALT (SGPT) 78 U/L (8-55); AST (SGOT) 30 U/L (5-34); Albumin 3.5 g/dL (3.5-5.0); Alkaline Phosphatase 89 U/L (40-110); Anion Gap 12 mmol/L (10-20); BUN (Urea Nitrogen) 19 mg/dL (8.9-20.6); Bilirubin, Total 0.4 mg/dL (0.2-1.2); Calc. Creatinine Clearance 0 mL/min (70-130); Calcium 8.8 mg/dL (7.8-10.44); Carbon Dioxide 30 mmol/L (22-29); Chloride 100 mmol/L (98-107); Estimated GFR-MDRD 50; Globulin 3.5 g/dL (2.4-3.5); Glucose 62 mg/dL (70-105); Potassium 4.4 mmol/L (3.5-5.1); Sodium 138 mmol/L (136-145)
[2019-12-13 14:08] LABS: CKMB 1.5 ng/mL (0-6.6)
--- NOTE | 2019-12-13 14:19 | RAD ---
PORTABLE CHEST: 12/13/19 HISTORY: Low blood pressure. Lungs appear clear. No infiltrate or vascular congestion. Heart is mildly prominent but stable from p rior exam of 12/10/19. IMPRESSION: No acute process. POS: AGW
== END 2019-12-13 15:15 ==
LOC: EEVIPCON 12:34 → ERS 12:34
DX: I95.9 Hypotension, unspecified (principal); I11.0 Hypertensive heart disease with heart failure; I50.23 Acute on chronic systolic (congestive) heart failure; I42.8 Other cardiomyopathies; I47.2 Ventricular tachycardia; I25.2 Old myocardial infarction; F20.9 Schizophrenia, unspecified; F17.200 Nicotine dependence, unspecified, uncomplicated; Z79.01 Long term (current) use of anticoagulants; Z79.899 Other long term (current) drug therapy; Z79.82 Long term (current) use of aspirin
CPT/HCPCS: 36415; 71045; 80053; 82553; 84484; 85025; 93005